=== PATIENT | male | born 1940 | race African-American/Black ===

== ENCOUNTER 2023-11-15 17:07 | Inpatient (IN) | payer OTHER ==
[2023-11-15 18:07] VITALS: BMI 19.5
[2023-11-15] MEDS ORDERED: P-EPHED 60MG/TRIPROLIDI 2.5MG TABLET PO PRN (21:41)
[2023-11-15] MEDS ORDERED: BENZONATATE 200 MG CAPSULE PO PRN (21:41)
[2023-11-15] MEDS ORDERED: guaiFENesin 600 MG TABLET.ER (FP) PO PRN (21:41)
[2023-11-15] MEDS ORDERED: MAGNESIUM HYDROX 2400MG/30ML ORAL SUSPENSION 30 ML CUP PO PRN (21:41)
[2023-11-15] MEDS ORDERED: LOPERAMIDE HCL 2 MG CAPSULE PO PRN (21:41)
[2023-11-15] MEDS ORDERED: DOCUSATE SODIUM 100 MG CAPSULE (FP) PO PRN (21:41)
[2023-11-16] MEDS: THIAMINE HCL 100 MG TABLET (FP) PO SCH (03:15)
[2023-11-16] MEDS: TUBERCULIN PPD 5 TU/0.1ML SYRINGE (IN PATIENT USE ONLY) ID ONE (10:10)
[2023-11-16] MEDS: PRENATAL VITAMINS W/ FOLIC ACID TABLET (FP) PO SCH (10:10)
[2023-11-16 10:36] LABS: HEMATOCRIT 36.8 % (35.4-49); HEMOGLOBIN 12.5 GM/dL (11.7-16.9); MCH 31.4 pg (25.7-33.7); MEAN CELL VOLUME 92.6 fl (80-96); MEAN PLT VOLUME 9.7 fl (7.5-11.1); PLATELET COUNT 214 10^3/uL (134-434); RBC 3.98 M/mm3 (4.00-5.60); WHITE BLOOD COUNT 3.3 K/mm3 (4.0-10.0)
[2023-11-16 10:53] LABS: CALCIUM 9.3 mg/dL (8.5-10.1)
[2023-11-16 10:54] LABS: ALBUMIN 3.7 g/dl (3.4-5.0)
[2023-11-16 10:58] LABS: BILIRUBIN,TOTAL 0.6 mg/dL (0.2-1); TOT PROT 7.1 g/dl (6.4-8.2)
[2023-11-16] MEDS: ACETAMINOPHEN 325 MG TABLET (FP) PO PRN (19:12)
[2023-11-16] MEDS: MELATONIN 5 MG TABLETS PO PRN (21:07)
[2023-11-17] MEDS: IBUPROFEN 400 MG TABLET (FP) PO PRN (13:05)
[2023-11-18] MEDS: MAG HYDROX/AL HYDROX/SIMETH 30 ML UNIT-DOSE CUP PO PRN (09:36)
[2023-11-18] MEDS: NIFEdipine E.R 60 MG TABLET PO SCH (10:39)
[2023-11-18] MEDS: TAMSULOSIN HCL 0.4 MG CAP PO SCH (10:39)
[2023-11-19 10:32] LABS: URINE APPEARANCE CLEAR; URINE BILIRUBIN NEGATIVE (NEGATIVE); URINE COLOR YELLOW; URINE GLUCOSE (UA) NEGATIVE (NEGATIVE); URINE KETONE NEGATIVE (NEGATIVE); URINE LEUK ESTERASE NEGATIVE (NEGATIVE); URINE NITRITE NEGATIVE (NEGATIVE); URINE PROTEIN NEGATIVE (NEGATIVE); URINE UROBILINOGEN 0.2 mg/dL (0.2-1.0)
[2023-11-19 12:08] LABS: INR 1.06 (0.83-1.09); PROTHROMBIN TIME (PATIENT) 12.3 SEC (9.7-13.0)
[2023-11-20] MEDS: BENZOCAINE/MENTHOL (CHLORASEPTIC ) LOZENGE MM PRN (08:51)
[2023-11-20] MEDS: ONDANSETRON *ODT* 4 MG TABLET SL PRN (09:10)
[2023-11-21] MEDS: metoPROLOL SUCCINATE 25 MG TAB.SR.24H (FP) PO SCH (10:29)
[2023-11-27] MEDS: DORZOLAMIDE 2% HCL OPHTHALMIC SOLUTION 10 ML BOTTLE OU SCH (21:32)
[2023-11-27] MEDS: LATANOPROST 0.005% OPHTH SOLN 2.5ML BOTTLE OU SCH (21:32)
[2023-11-27] MEDS: TIMOLOL 0.5% OPHTHALMIC SOL 5 ML BOTTLE OU SCH (21:33)
[2023-11-27] MEDS ORDERED: PATIENT'S OWN MEDICATION (NON-FORMULARY) (Dorzolamide/Timolol/Pf [Timolol 0.5%-Dorzolamide OU SCH (22:00)
[2023-12-02] MEDS ORDERED: MAG HYDROX/AL HYDROX/SIMETH 30 ML UNIT-DOSE CUP PO PRN (10:57)
[2023-12-02] MEDS ORDERED: BENZONATATE 200 MG CAPSULE PO PRN (10:57)
[2023-12-02] MEDS ORDERED: POLYETHYLENE GLYCOL (HEALTHYLAX) 3350 17 GM PACKET PO PRN (10:57)
[2023-12-02] MEDS ORDERED: DICYCLOMINE HCL 10 MG CAPSULE PO PRN (10:57)
[2023-12-02] MEDS: NALTREXONE HCL 50 MG TABLET PO ONE (12:15)
[2023-12-03] MEDS: guaiFENesin 600 MG TABLET.ER (FP) PO PRN (06:43)
[2023-12-03 09:09] VITALS: BP 163/76; PULSE 87; RESP 18; TEMP 97.5
[2023-12-03] MEDS: NALTREXONE HCL 50 MG TABLET PO SCH (10:31)
[2023-12-06] MEDS ORDERED: NALTREXONE MICROSPHERES (VIVITROL) 380 MG DISP.SYRIN IM ONE (06:00)
== END 2023-12-03 15:15 | disposition home or self-care (01) | DRG 895 ==
LOC: YASAS 17:07 → Y3NR 11-16 02:35 → Y3W 11-16 11:49
PROVIDERS: ADMIT Allergy & Immunology; ATTEND Psychiatry & Neurology Pain Medicine
PROC: HZ42ZZZ Group Counseling for Substance Abuse Treatment, Cognitive-Behavioral (ICD-10-PCS; principal; 2023-11-16)
DX: F10.20 Alcohol dependence, uncomplicated (principal); Z68.1 Body mass index [BMI] 19.9 or less, adult; I10 Essential (primary) hypertension; G89.4 Chronic pain syndrome; R76.8 Other specified abnormal immunological findings in serum; R63.4 Abnormal weight loss; Z86.19 Personal history of other infectious and parasitic diseases; Z85.46 Personal history of malignant neoplasm of prostate
CPT/HCPCS: 0241U-QW; 36415; 80053; 81003; 82140; 82652; 82962; 83735; 85027; 85610; 86593; 86780; 93005; 93010; Q0162